=== PATIENT | female | born 1985 | race Caucasian/White ===

== ENCOUNTER 2018-08-18 12:13 | Observation (INO) ==
[2018-08-18] MEDS ORDERED: ZOFRAN INJ 4 MG VIAL IVP PRN (13:27)
[2018-08-18] MEDS ORDERED: LEVAQUIN PREMIX IV 500 MG 500 MG/100 ML BAG IV ONE (13:49)
[2018-08-18] MEDS ORDERED: TYLENOL 325 MG TAB PO ONE (13:50)
[2018-08-18 13:58] LABS: BASOPHILS # (AUTO) 0.1 X10^3/uL (0.0-0.1); BASOPHILS % (AUTO) 0.6 % (0.2-1.0); HEMATOCRIT 36.5 % (36.0-47.0); HEMOGLOBIN 12.8 g/dL (12.0-16.0); LYMPHOCYTES # (AUTO) 0.5 X10^3/uL (1.3-2.9); LYMPHOCYTES % (AUTO) 2.8 % (21.0-51.0); MEAN CORPUSCULAR VOLUME 94.2 fL (80.0-100.0); MEAN PLATELET VOLUME 8.7 fL (7.4-11.0); MONOCYTES # (AUTO) 1.2 x10^3/uL (0.3-0.8); MONOCYTES % (AUTO) 6.7 % (0.0-13.0); NEUTROPHILS # (AUTO) 16.7 x10^3/uL (2.2-4.8); NEUTROPHILS % (AUTO) 89.9 % (42.0-75.0); PLATELET COUNT 148 X10^3/uL (150.0-450.0); RED BLOOD COUNT 3.87 X10^6/uL (3.5-5.4); WHITE BLOOD COUNT 18.5 X10^3/uL (3.6-10.0)
[2018-08-18] MEDS: LEVAQUIN PREMIX IV 500 MG 500 MG/100 ML BAG IV SCH (14:07)
[2018-08-18] MEDS: NS 1000 ML 1,000 ML IV SCH ×2 (14:07→21:52)
[2018-08-18] MEDS: TYLENOL 325 MG TAB PO PRN (14:07)
[2018-08-18 14:09] LABS: ALANINE AMINOTRANSFERASE 16 Units/L (12-78); ALBUMIN 3.3 g/dL (3.4-5.0); ALKALINE PHOSPHATASE 57 Units/L (46-116); ASPARTATE AMINO TRANSFERASE 11 Units/L (15-37); BLOOD UREA NITROGEN 11 mg/dL (7-18); CALCIUM 8.2 mg/dL (8.5-10.1); CARBON DIOXIDE 23.6 mmol/L (21-32); CHLORIDE 100 mmol/L (98-107); COR CA(FOR HYPOALB) 8.8 mg/dL (8.5-10.1); COR NA(FOR HYPERGLY) 136 mmol/L (136-145); CREATININE 1.02 mg/dL (0.55-1.02); SODIUM 135 mmol/L (136-145); TOTAL PROTEIN 7.3 g/dL (6.4-8.2); eGFR NON BLACK RACES > 60 (>60)
[2018-08-18] MEDS ORDERED: K-RIDER 10 MEQ/NS 100 ML 10 MEQ/100 ML BAG IV PRN (14:12)
[2018-08-18] MEDS ORDERED: MICRO K EXTEN CAP 10 MEQ PO PRN (14:12)
[2018-08-18] MEDS ORDERED: KLOR-CON PO PRN (14:12)
[2018-08-18] MEDS ORDERED: K-DUR TAB 20 MEQ PO PRN (14:12)
[2018-08-18] MEDS ORDERED: POTASSIUM CHL 60 MEQ/NS 0.45% 500 ML IV PRN (14:12)
[2018-08-18] MEDS ORDERED: POTASSIUM CHL 40 MEQ/NS 0.45% 500 ML IV PRN (14:12)
[2018-08-18] MEDS ORDERED: POTASSIUM CHLORIDE LIQ 20 MEQ UDC PO PRN (14:12)
[2018-08-18 14:18] LABS: BILIRUBIN,URINE 1+ (NEGATIVE); BLOOD/HEMOGLOBIN,URINE 5+ (NEGATIVE); GLUCOSE, URINE NEGATIVE (NEGATIVE); KETONES,URINE 3+ (NEGATIVE); LEUKOCYTE ESTERASE ,URINE 3+ (NEGATIVE); NITRITES,URINE POSITIVE (NEGATIVE); PROTEIN,URINE 3+ (NEGATIVE); UROBILINOGEN,URINE 2+ (NORMAL)
[2018-08-18 14:28] LABS: APPEARANCE,URINE HAZY (CLEAR); COLOR,URINE DARK YELLOW (YELLOW)
[2018-08-18 14:29] LABS: BACTERIA,URINE 4+ /HPF (NEGATIVE); RBC,URINE 20-30 /HPF (NONE SEEN); SQUAMOUS EPITHELIAL CELL,UR MODERATE /HPF (NEGATIVE)
--- NOTE | 2018-08-18 15:02 | CT ---
CT abdomen and pelvis without contrast Indication: Right-sided abdominal and back pain. Hematuria. Technique: CT images of the abdomen and pelvis were obtained without contrast. Automatic exposure control was utilized. Findings: The lung bases are clear. No acute osseous abnormality. Evaluation of the abdominal pelvic viscera is limited without contrast. There is diffuse right-sided perinephric fat stranding. No radiopaque urinary stones are identified. There is minimal right-sided pelviectasis, without overt hydronephrosis. No discrete perinephric collection or renal gas can be identified. Within noncontrast limitations, the liver, gallbladder, spleen, stomach, duodenum, pancreas, adrenals, and left kidney are unremarkable. No significant bowel thickening or dilatation of the lower GI tract is identified. The appendix is normal. The uterus and ovaries are noted, with previous tubal ligation observed. The urinary bladder is mostly collapsed, but grossly unremarkable. The rectum is unremarkable. No free fluid or adenopathy. Impression: Nonspecific asymmetric right perinephric stranding, potentially representing pyelonephritis or recently passed stone. Correlation with urinalysis recommended. There is mild right-sided pelviectasis without overt hydronephrosis. No radiopaque urinary stone is observed. Reported By:
[2018-08-18] MEDS: MAGNESIUM SULFATE 1 GRAM/100 mL PREMIX 1 GM/100 ML BAG IV PRN ×4 (15:38→18:51)
[2018-08-18] MEDS: TORADOL 30 MG VIAL IVP PRN ×2 (15:38→21:21)
[2018-08-18 16:29] VITALS: BMI 25.9
[2018-08-19] MEDS: NS 1000 ML 1,000 ML IV SCH ×3 (05:21→23:40)
[2018-08-19] MEDS: TORADOL 30 MG VIAL IVP PRN ×2 (06:07→14:04)
[2018-08-19] MEDS: TYLENOL 325 MG TAB PO PRN (06:07)
[2018-08-19 06:24] LABS: BASOPHILS # (AUTO) 0.1 X10^3/uL (0.0-0.1); BASOPHILS % (AUTO) 0.4 % (0.2-1.0); HEMOGLOBIN 12.3 g/dL (12.0-16.0); LYMPHOCYTES # (AUTO) 0.6 X10^3/uL (1.3-2.9); LYMPHOCYTES % (AUTO) 3.9 % (21.0-51.0); MEAN CORPUSCULAR HEMOGLOBIN 33.2 pg (27.0-34.0); MEAN CORPUSCULAR HGB CONC 35.1 g/dL (33.0-35.0); MEAN CORPUSCULAR VOLUME 94.5 fL (80.0-100.0); MEAN PLATELET VOLUME 9.6 fL (7.4-11.0); MONOCYTES # (AUTO) 0.7 x10^3/uL (0.3-0.8); MONOCYTES % (AUTO) 4.4 % (0.0-13.0); NEUTROPHILS # (AUTO) 13.6 x10^3/uL (2.2-4.8); NEUTROPHILS % (AUTO) 91.3 % (42.0-75.0); PLATELET COUNT 137 X10^3/uL (150.0-450.0); RED BLOOD COUNT 3.71 X10^6/uL (3.5-5.4); RED CELL DISTRIBUTION WIDTH 12.8 % (11.6-16.5)
[2018-08-19 07:04] LABS: ALANINE AMINOTRANSFERASE 16 Units/L (12-78); ALKALINE PHOSPHATASE 64 Units/L (46-116); ASPARTATE AMINO TRANSFERASE 17 Units/L (15-37); BLOOD UREA NITROGEN 14 mg/dL (7-18); CALCIUM 7.7 mg/dL (8.5-10.1); CARBON DIOXIDE 24.2 mmol/L (21-32); CHLORIDE 103 mmol/L (98-107); COR CA(FOR HYPOALB) 8.5 mg/dL (8.5-10.1); CREATININE 0.98 mg/dL (0.55-1.02); MAGNESIUM 2.7 mg/dL (1.7-2.9); PLATELET MORPHOLOGY COMMENT NORMAL (NORMAL); SODIUM 137 mmol/L (136-145); eGFR NON BLACK RACES > 60 (>60)
[2018-08-19] MEDS: LEVAQUIN PREMIX IV 500 MG 500 MG/100 ML BAG IV SCH (09:22)
--- NOTE | 2018-08-19 16:47 | DR.UPDATE ---
H&P Update History and Physical Update: WAS SEEN IN THE OFFFICE TODAY. SHE WAS ADMITTED FOR SUSPECTED PYELOPNEPHRITIS. A H&P WAS COMPLETED PRIOR TO ADMISSION. PATIENT HAS BEEN SEEN AND EXAMINED WITH NO CHANGES NOTED TO H&P. Changes noted: NO Yes with the following:
--- NOTE | 2018-08-19 17:06 | PCM.PROG ---
Progress Note - Progress Note for Day of Date of Exam: 08/19/18 - Subjective Subjective: WAS ADMITTED FOR SUSPECTED PYELONEPHRITIS. AN ABDOMEN/PELVIS CT WAS OBTAINED ON ADMISSION AND REVEALED: Nonspecific asymmetric right perinephric stranding, potentially representing pyelonephritis or recently passed stone. There is mild right-sided pelviectasis without overt hydroneph rosis. No radiopaque urinary stone is observed. WBC WAS 18.5 ON ADMISSION. TODAY, SHE IS ALERT AND ORIENTED, LYING IN BED ON MORNING ROUNDS. SHE CONTINUES WITH COMPLAINTS OF ABDOMINAL PAIN AND NAUSEA. ON EXAMINATION, HEART IS REGULAR IN RATE AND RHYTHM. BILATERAL LUNGS ARE CLEAR TO AUSCULTATION. ABDOMEN IS ROUND, SOFT, AND NOTED WITH SUPRAPUBIC TENDERNESS TO PALPATION. NORMAL BOWEL SOUNDS ARE NOTED IN ALL QUADRANTS. HER VITALS THIS MORNING ARE 99.3-90-18-100%-99/58. SHE WAS NOTED TO BE FEBRILE ON ADMISSION AND DURING THE NIGHT. LABS WERE OBTAINED THIS MORNING. ABNORMAL LAB VALUES INCLUDE THE FOLLOWING: WBC DECREASED FROM 18.5 TO 15.0, HCT 35.0, GLUCOSE 103, CALCIUM 7.7, ALBUMIN 3.0. URINALYSIS OBTAINED ON ADMISSION REVEALED: WBC TNTC, RBC 20-30, BACTERIA 4+, LEUKOCYTES 3+, NITRITE POSITIVE, OCCULT BLOOD 5+, PROTEIN 3+. SHE IS CURRENTLY RECEIVING NORMAL SALINE AT 100ML/HR, AND LEVAQUIN 500MG IV DAILY. WE WILL CONTINUE WITH CURRENT PLAN OF CARE TODAY. OTHERWISE, WE WILL FOLLOW UP WITH AM LABS AND CONTINUE TO MONITOR PATIENT. - Past Medical Family Social History Past Med/Fam/Surg Hx: No changes since H&P Allergies: Allergies No Known Drug Allergies Allergy (Verified 08/18/18 13:26) - Review of Systems ROS: No change since H&P - Vital Signs and I&O's Vital Signs: Temperature 99.1 F Pulse Rate [Left Brachial] 83 Respiratory Rate 20 Blood Pressure [Left Arm] 99/52 O2 Sat by Pulse Oximetry 97 Intake and Output: Intake & Output 08/17/18 08/18/18 08/19/18 08/20/18 11:59 11:59 11:59 11:59 Intake Total 2099 / 2099 720 / 720 Balance 2099 720 / 720 - Physical Exam Oriented: Normal Eyes: Normal Ear: Normal Nose: Normal Throat: Normal Respiratory: Normal Cardiovascular: Normal : Normal Auscultation: Bowel Sounds: Normal Palpation: Normal Tenderness: Suprapubic, Moderate. negative: Rebound, Guarding, Rigidity Skin: Normal Musculoskeletal: Normal Psychiatric: Normal Mood Description: Calm Affect: Normal Speech Pattern: Clear, Appropriate - Laboratory and Diagnostics Result Diagrams: 08/19/18 05:53 08/19/18 05:53 Labs: 08/18/18 14:00 Urine,Clean Catch Urine Culture - Preliminary Laboratory WBC 15.0 X10^3/uL (3.6-10.0) H 08/19/18 05:53 RBC 3.71 X10^6/uL (3.5-5.4) 08/19/18 05:53 Hgb 12.3 g/dL (12.0-16.0) 08/19/18 05:53 Hct 35.0 % (36.0-47.0) L 08/19/18 05:53 MCV 94.5 fL (80.0-100.0) 08/19/18 05:53 MCH 33.2 pg (27.0-34.0) 08/19/18 05:53 MCHC 35.1 g/dL (33.0-35.0) H 08/19/18 05:53 RDW 12.8 % (11.6-16.5) 08/19/18 05:53 Plt Count 137 X10^3/uL (150.0-450.0) L 08/19/18 05:53 Plt Count Comment Adequate (ADEQUATE) 08/19/18 05:53 MPV 9.6 fL (7.4-11.0) 08/19/18 05:53 Neut % (Auto) 91.3 % (42.0-75.0) H 08/19/18 05:53 Lymph % (Auto) 3.9 % (21.0-51.0) L 08/19/18 05:53 Douglas % (Auto) 4.4 % (0.0-13.0) 08/19/18 05:53 Eos % (Auto) 0.0 % (0.9-2.9) L 08/19/18 05:53 Baso % (Auto) 0.4 % (0.2-1.0) 08/19/18 05:53 Neut # (Auto) 13.6 x10^3/uL (2.2-4.8) H 08/19/18 05:53 Lymph # (Auto) 0.6 X10^3/uL (1.3-2.9) L 08/19/18 05:53 Douglas # (Auto) 0.7 x10^3/uL (0.3-0.8) 08/19/18 05:53 Eos # (Auto) 0.0 x10^3/uL (0.0-0.2) 08/19/18 05:53 Baso # (Auto) 0.1 X10^3/uL (0.0-0.1) 08/19/18 05:53 Absolute Nucleated RBC 0.0 /100WBC 08/19/18 05:53 Total Counted 100 08/19/18 05:53 Neutrophils % (Manual) 93 % (39-76) H 08/19/18 05:53 Lymphocytes % (Manual) 5 % (13-43) L 08/19/18 05:53 Monocytes % (Manual) 2 % (4-9) L 08/19/18 05:53 Plt Morphology Comment Normal (NORMAL) 08/19/18 05:53 RBC Morphology Normal (NORMAL) 08/19/18 05:53 Sodium 137 mmol/L (136-145) 08/19/18 05:53 Corrected Sodium TNP 08/19/18 05:53 Potassium 3.6 mmol/L (3.5-5.1) 08/19/18 05:53 Chloride 103 mmol/L (98-107) 08/19/18 05:53 Carbon Dioxide 24.2 mmol/L (21-32) 08/19/18 05:53 BUN 14 mg/dL (7-18) 08/19/18 05:53 Creatinine 0.98 mg/dL (0.55-1.02) 08/19/18 05:53 Est GFR (MDRD) Af Amer > 60 (>60) 08/19/18 05:53 Est GFR (MDRD) Non-Af > 60 (>60) 08/19/18 05:53 Glucose 103 mg/dL (65-99) H 08/19/18 05:53 Calcium 7.7 mg/dL (8.5-10.1) L 08/19/18 05:53 Corrected Calcium 8.5 mg/dL (8.5-10.1) 08/19/18 05:53 Magnesium 2.7 mg/dL (1.7-2.9) 08/19/18 05:53 Total Bilirubin 0.90 mg/dL (0.2-1.0) 08/19/18 05:53 AST 17 Units/L (15-37) 08/19/18 05:53 ALT 16 Units/L (12-78) 08/19/18 05:53 Alkaline Phosphatase 64 Units/L (46-116) 08/19/18 05:53 Total Protein 7.0 g/dL (6.4-8.2) 08/19/18 05:53 Albumin 3.0 g/dL (3.4-5.0) L 08/19/18 05:53 Globulin 4.0 g/dL (2.5-4.5) 08/19/18 05:53 Albumin/Globulin Ratio 0.8 Ratio (1.1-2.1) L 08/19/18 05:53 Specimen Type Clean catch urine 08/18/18 14:00 Urine Color Dark yellow (YELLOW) 08/18/18 14:00 Urine Appearance Hazy (CLEAR) 08/18/18 14:00 Urine pH 6.0 (5.0 - 8.0) 08/18/18 14:00 Ur Specific Beemer 1.020 (1.000-1.030) 08/18/18 14:00 Urine Protein 3+ (NEGATIVE) 08/18/18 14:00 Urine Glucose (UA) Negative (NEGATIVE) 08/18/18 14:00 Urine Ketones 3+ (NEGATIVE) 08/18/18 14:00 Urine Occult Blood 5+ (NEGATIVE) 08/18/18 14:00 Urine Nitrite Positive (NEGATIVE) 08/18/18 14:00 Urine Bilirubin 1+ (NEGATIVE) 08/18/18 14:00 Urine Urobilinogen 2+ (NORMAL) 08/18/18 14:00 Ur Leukocyte Esterase 3+ (NEGATIVE) 08/18/18 14:00 Urine RBC 20-30 /HPF (NONE SEEN) 08/18/18 14:00 Urine WBC Tntc /HPF (NONE SEEN) 08/18/18 14:00 Ur Squamous Epith Cells Moderate /HPF (NEGATIVE) 08/18/18 14:00 Urine Bacteria 4+ /HPF (NEGATIVE) 08/18/18 14:00 Ur Culture Indicated? Yes/culture set up 08/18/18 14:00 - Plan (1) Pyelonephritis Status: Acute Plan: NORMAL SALINE AT 100ML/HR, LEVAQUIN 500MG IV DAILY, CONTINUE TO MONITOR
[2018-08-19] MEDS: ULTRAM PO PRN (22:44)
[2018-08-20] MEDS: NS 1000 ML 1,000 ML IV SCH (05:14)
[2018-08-20 05:15] LABS: BASOPHILS % (AUTO) 0.1 % (0.2-1.0); EOSINOPHILS % (AUTO) 0.5 % (0.9-2.9); HEMATOCRIT 27.7 % (36.0-47.0); LYMPHOCYTES # (AUTO) 1.3 X10^3/uL (1.3-2.9); LYMPHOCYTES % (AUTO) 14.7 % (21.0-51.0); MEAN CORPUSCULAR HEMOGLOBIN 33.5 pg (27.0-34.0); MEAN CORPUSCULAR HGB CONC 35.7 g/dL (33.0-35.0); MEAN CORPUSCULAR VOLUME 93.9 fL (80.0-100.0); MEAN PLATELET VOLUME 9.1 fL (7.4-11.0); MONOCYTES # (AUTO) 0.7 x10^3/uL (0.3-0.8); NEUTROPHILS # (AUTO) 6.6 x10^3/uL (2.2-4.8); NEUTROPHILS % (AUTO) 76.7 % (42.0-75.0); PLATELET COUNT 116 X10^3/uL (150.0-450.0); RED BLOOD COUNT 2.95 X10^6/uL (3.5-5.4); RED CELL DISTRIBUTION WIDTH 12.9 % (11.6-16.5); WHITE BLOOD COUNT 8.6 X10^3/uL (3.6-10.0)
[2018-08-20 05:30] LABS: ALANINE AMINOTRANSFERASE 19 Units/L (12-78); ALBUMIN 2.3 g/dL (3.4-5.0); ALKALINE PHOSPHATASE 58 Units/L (46-116); ASPARTATE AMINO TRANSFERASE 21 Units/L (15-37); BLOOD UREA NITROGEN 11 mg/dL (7-18); CALCIUM 7.6 mg/dL (8.5-10.1); CARBON DIOXIDE 23.2 mmol/L (21-32); CHLORIDE 108 mmol/L (98-107); CREATININE 0.69 mg/dL (0.55-1.02); HEMOGLOBIN 9.9 g/dL (12.0-16.0); SODIUM 138 mmol/L (136-145); TOTAL PROTEIN 5.7 g/dL (6.4-8.2); eGFR NON BLACK RACES > 60 (>60)
[2018-08-20] MEDS: LEVAQUIN PREMIX IV 500 MG 500 MG/100 ML BAG IV SCH (08:57)
[2018-08-20 10:54] VITALS: BP 124/86
[2018-08-20] MEDS: TORADOL 30 MG VIAL IVP PRN (10:55)
[2018-08-20] MEDS: ULTRAM PO PRN (11:06)
--- NOTE | 2018-09-23 22:40 | DR.CARTERD ---
- Discharge Summary for: Discharge Summary for Date of:: 08/20/18 - Admission Date Date of Admission: 08/18/18 - Admission Diagnoses Admission Diagnosis: (1) Pyelonephritis - Discharge Date Discharge Date: 08/20/18 - Discharge Diagnoses Discharge Diagnosis: (1) Pyelonephritis - Hospital Course Hospital Course: DDAY ONE, WAS ADMITTED FOR SUSPECTED PYELONEPHRITIS. AN ABDOMEN/PELVIS CT WAS OBTAINED ON ADMISSION AND REVEALED: Nonspecific asymmetric right perinephric stranding, potentially representing pyelonephritis or recently passed stone. There is mild right-sided pelviectasis without overt hydronephrosis. No radiopaque urinary stone is observed. WBC WAS 18.5 ON ADMISSION. SHE WAS STARTED ON IV FLUIDS AND IV ANTIBIOTIC THERAPY. WE CONTINUED TO MONITOR AND TREAT. DAY TWO, SHE WAS ALERT AND ORIENTED, LYING IN BED ON MORNING ROUNDS. SHE CONTINUED WITH COMPLAINTS OF ABDOMINAL PAIN AND NAUSEA. ON EXAMINATION, HEART WAS REGULAR IN RATE AND RHYTHM. BILATERAL LUNGS WERE CLEAR TO AUSCULTATION. ABDOMEN WAS ROUND, SOFT, AND NOTED WITH SUPRAPUBIC TENDERNESS TO PALPATION. NORMAL BOWEL SOUNDS WERE NOTED IN ALL QUADRANTS. HER VITALS WERE 99.3-90-18-100%-99/58. SHE WAS NOTED TO BE FEBRILE ON ADMISSION AND DURING THE NIGHT. LABS WERE OBTAINED THIS MORNING. ABNORMAL LAB VALUES INCLUDED THE FOLLOWING: WBC DECREASED FROM 18.5 TO 15.0, HCT 35.0, GLUCOSE 103, CALCIUM 7.7, ALBUMIN 3.0. URINALYSIS OBTAINED ON ADMISSION REVEALED: WBC TNTC, RBC 20-30, BACTERIA 4+, LEUKOCYTES 3+, NITRITE POSITIVE, OCCULT BLOOD 5+, PROTEIN 3+. SHE RECEIVED NORMAL SALINE AT 100ML/HR, AND LEVAQUIN 500MG IV DAILY. WE CONTINUED WITH CURRENT PLAN OF CARE TODAY. WILL FOLLOWED UP WITH AM LABS AND CONTINUED TO MONITOR PATIENT. DAY THREE, PATIENT WAS SITTING UP IN BED ALERT AND ORIENTED THIS AM. URINE CULTURE SHOWED ESCHERICHIA COLI. BLOOD CULTURES SHOWED NO GROWTH AT THIS TIME. VITAL SIGNS ARE STABLE. PATIENT WAS AFEBRILE FROM MIDNIGHT TO PRESENT TIME. LABS ARE WITHIN NORMAL LIMITS. WBCs DECREASED TO 8.6. WE PLANNED FOR DISCHARGE. INSTRUCTIONS FOR MEDICATIONS AND FOLLOW UP WAS DISCUSSED WITH PATIENT AND FAMILY, BOTH VOICED UNDERSTANDING. PATIENT DISCHARGED HOME IN STABLE CONDITION. - Discharge Medications Discharge Medications: Home Medication List NK 08/18/18 [History] levofloxacin [Levaquin] 750 mg PO QDAY #14 tab 08/20/18 [Rx] phenazopyridine [Pyridium] 200 mg PO TID PRN #10 tab 08/20/18 [Rx] Prescriptions: levofloxacin [Levaquin] Rick Licona phenazopyridine [Pyridium] Rick Licona - Discharge Disposition Discharge Disposition: PATIENT TO FOLLOW UP IN OUR OFFICE IN ONE WEEK.
== END 2018-08-20 11:45 | disposition home or self-care (01) ==
LOC: INTOOBSV 13:04 → MED/SURG 13:04
PROVIDERS: ADMIT Internal Medicine; ATTEND Internal Medicine
CPT/HCPCS: 36415; 74176; 80053; 81001; 83735; 85025; 87040; 87086; 87088; 87186; A4216; A4222; G0378; J1885; J1956; J3475; J3490; J7030